=== PATIENT | female | born 1990 | race African-American/Black ===

== ENCOUNTER 2016-09-14 01:45 | Emergency (ER) | payer SELFPAY ==
--- NOTE | 2016-09-14 03:35 | ER Document Report ---
ED General - General Chief Complaint: Vaginal Discharge Stated Complaint: POSSIBLE STD EXPOSURE,URINARY SYMPTOMS Notes: Patient is a 26 year old female presents for complaint of abnormal vaginal discharge for one month. Patient says that she's here she was to be tested for sexually transmitted diseases and HIV. Patient says it has been a while since she's been sexually active but she's not having testing since last time she was sexually active. She says it has been close to 1 year since she was last sexually active. Her last HIV test was just before she was last sexually active. She says it was negative at that time. She has not been sick recently - Related Data Allergies/Adverse Reactions: No Known Allergies Allergy (Verified 09/14/16 05:01) Past Medical History - Social History Smoking Status: Never Smoker Frequency of alcohol use: None Drug Abuse: None Family History: Reviewed & Not Pertinent Renal/ Medical History: Denies: Hx Peritoneal Dialysis Review of Systems - Review of Systems Notes: My Normal Review Basic REVIEW OF SYSTEMS: CONSTITUTIONAL : Denies fever, chills, or sweats. Denies recent illness. RESPIRATORY: Denies cough, cold, or chest congestion. Denies shortness of breath, difficulty breathing, or wheezing. GASTROINTESTINAL: Denies abdominal pain. Denies nausea, vomiting, or diarrhea. Denies constipation. Last BM: GENITOURINARY: Denies difficulty urinating, painful urination, burning, frequency, or blood in urine. FEMALE GENITOURINARY: Normal vaginal discharge MUSCULOSKELETAL: Denies neck or back pain or joint pain or swelling. SKIN: Denies rash or skin lesions. NEUROLOGICAL: Denies altered mental status or loss of consciousness. Denies headache. Denies weakness or paralysis or loss of use of either side. Denies problems with gait or speech. Denies sensory or motor loss. ALL OTHER SYSTEMS REVIEWED AND NEGATIVE. Physical Exam - Vital signs Vitals: Temp Pulse Resp BP Pulse Ox 99.0 F 16 L 16 147/90 H 100 09/14/16 01:50 09/14/16 01:50 09/14/16 01:50 09/14/16 01:50 09/14/16 01:50 - Notes Notes: General Appearance: Well nourished, alert, cooperative, no acute distress, no obvious discomfort. Vitals: reviewed, See vital signs table. Head: no swelling or tenderness to the head Eyes: PERRL, EOMI, Conjuctiva clear Mouth: No decreasd moisture Lungs: No wheezing, No rales, No rhonci, No accessory muscle use, good air exchange bilaterally. Heart: Normal rate, Regular rythm, No murmur, no rub Abdomen: Normal BS, soft, No rigidity, No abdominal tenderness, No guarding, no rebound, no abdominal masses, no organomegaly Pelvic: Normal external genitalia. some whitish vaginal discharge. Extremities: strength 5/5 in all extremities, good pulses in all extremities, no swelling or tenderness in the extremities, no edema. Skin: warm, dry, appropriate color, no rash Neuro: speech clear, oriented x 3, normal affect, responds appropriately to questions. Course - Vital Signs Vital signs: Temp Pulse Resp BP Pulse Ox 99.0 F 16 L 16 147/90 H 100 09/14/16 01:50 09/14/16 01:50 09/14/16 01:50 09/14/16 01:50 09/14/16 01:50 - Transfer of Care Notes: 09/14/16 05:59 Patient's exam is consistent with probable bacterial vaginosis. I will place her on Flagyl. Her HIV testing is negative. I did not suspect gonorrhea chlamydia. These tests are pending. I will discharge her home and give her the number to call for results of her gonorrhea and chlamydia test. He told her if they're positive she will most likely receive a phone call anyhow. Patient encouraged return to ER shows worsening of her symptoms, fevers, or feels unwell. Patient agrees with plan and will be discharged home. Dictation of this chart was performed using voice recognition software; therefore, there may be some unintended grammatical errors. Discharge - Discharge Clinical Impression: Vaginal discharge Condition: Good Disposition: HOME, SELF-CARE Additional Instructions: PLease return to the ER immediately if you develop fevers, abdominal pain, or have worsening of your vaginal discharge. Please call the culture call back number @ [phone] to get the results of your chlamydia and gonorrhea testing. Prescriptions: Metronidazole [Flagyl 500 mg Tablet] 500 mg PO BID #14 tablet Forms: Return to Work
[2016-09-14 05:12] LABS: ADD HIVPANEL? NO; HIV (1 AND 2) ANTIBODY NEGATIVE (NEGATIVE)
[2016-09-14] MEDS ORDERED: METRONIDAZOLE 500 MG TABLET PO ONE (05:33)
[2016-09-14 06:13] VITALS: BP 137/90
[2016-09-14 06:34] LABS: CHLAM PCR NOT DETECTED (NOT DETECT)
== END 2016-09-14 06:10 | disposition home or self-care (01) ==
LOC: ER 01:45
DX: N89.8 Other specified noninflammatory disorders of vagina (principal)
CPT/HCPCS: 36415; 86701; 87210; 87491; 87591; 99283